=== PATIENT | female | born 1955 | race Caucasian/White ===

== ENCOUNTER 2016-09-11 13:49 | Emergency (ER) | payer MEDICARE, MEDICAID ==
[~2016-09-11] VITALS: Ht 165.1 cm; Wt 87.0 kg
--- NOTE | 2016-09-11 13:54 | PD ---
Physical Exam Date Seen by Provider: Sep 11, 2016 Time Seen by Provider: 13:51 Narrative Pt is a 61 y/o female presenting to the ED for evaluation after a slip and fall at her [facility]. Pt reports pain in upper back and left lower back. No head injury or LOC. No other complaints at this time. Fall was witnessed. Pt is not on any blood thinners. VSS. [facility] Supervised Visit with HONEY: Esperanza Benítez Sep 11, 2016 13:54
--- NOTE | 2016-09-11 14:06 | PD ---
HPI . slip and fall Chief Complaint: Fall Time Seen by Provider: 13:56 Travel History International Travel<30 days: No Contact w/Intl Traveler<30days: No Traveled to known affect area: No History of Present Illness HPI 61-year-old female with history of GERD, seasonal allergies, bipolar disorder and schizophrenia here with complaint of slip and fall at her residence [facility]. Patient is here telling me that she just wants to make her she is okay. She does not actually have any pain. She fell in what she thinks may have been some water and hit her buttocks. She denies any pain in her buttocks. She says there is very minimal pain in her upper and mid back. She denies any bowel or bladder dysfunction. She has no saddle anesthesia. She has no other complaints. She did not hit her head. PFSH Past Medical History Bipolar Disorder: Yes GERD: Yes Schizophrenia: Yes ?: Not LMP: JULY 2016 Social History Alcohol Use: No Tobacco Use: No Substance Use: No Allergies-Medications (Allergen,Severity, Reaction): Coded Allergies: No Known Allergies (Unverified , 09/11/16) Reported Meds & Prescriptions Reported Meds & Active Scripts Active Reported Risperidone 4 Mg Tab 4 Mg PO HS Risperidone 1 Mg Tab 1 Mg PO DAILY Omeprazole 20 Mg Tab 20 Mg PO DAILY Multiple Vitamin 1 Tab 1 Tab PO DAILY Loratadine 10 Mg Tab 10 Mg PO DAILY Fluticasone Nasal [place] 50 Mcg/Act Naspr 100 Mcg EACH NARE DAILY 50 mcg/spray Review of Systems General / Constitutional: No: Fever Eyes: No: Visual changes HENT: No: Headaches Cardiovascular: No: Chest Pain or Discomfort Respiratory: No: Shortness of Breath Gastrointestinal: No: Abdominal Pain Genitourinary: No: Dysuria Musculoskeletal: Positive: Pain (back) Skin: No Rash Neurologic: No: Weakness Psychiatric: No: Depression Endocrine: No: Polydipsia Hematologic/Lymphatic: No: Easy Bruising Physical Exam Narrative GENERAL: AAO x 3, no acute distress, Well-nourished, well-developed patient. Very comfortable SKIN: Warm and dry. No visible rashes or bruising. No bruising on back or buttocks HEAD: Normocephalic and atraumatic. EYES: No scleral icterus. No injection or drainage. EOM intact, PERRLA ENT: No nasal drainage noted. Mucous membranes pink. Airway patent. NECK: Supple, trachea midline. No JVD. CARDIOVASCULAR: Regular rate and rhythm without murmurs, gallops, or rubs. RESPIRATORY: Breath sounds equal bilaterally. No accessory muscle use. No rhonchi or rales. GASTROINTESTINAL: Abdomen soft, non-tender, nondistended. EXTREMITIES: No cyanosis or edema. BACK: Nontender without obvious deformity. No CVA tenderness. No spinal or paraspinal tenderness. Range of motion is normal in all extremities. Patient is fully ambulatory. Heel walk test is negative NEURO: CN 2-12 intact. Sensation is normal. Motor function is normal PSYCH: AAO x 3, normal affect. Data Data Last Documented VS Vital Signs Date Time Temp Pulse Resp B/P Pulse Ox O2 Delivery O2 Flow Rate FiO2 09/11/16 14:56 98.2 85 15 145/74 98 MDM Medical Decision Making Medical Screen Exam Complete: Yes Emergency Medical Condition: Yes Medical Record Reviewed: Yes Differential Diagnosis Slip and fall, back pain, less likely fracture Narrative Course 61-year-old female with history of GERD, seasonal allergies, bipolar disorder and schizophrenia here with complaint of slip and fall at her residence [facility]. Patient is here telling me that she just wants to make her she is okay. She does not actually have any pain. She fell in what she thinks may have been some water and hit her buttocks. She denies any pain in her buttocks. She says there is very minimal pain in her upper and mid back. She denies any bowel or bladder dysfunction. She has no saddle anesthesia. She has no other complaints. She did not hit her head. Patient seen and examined. She does not have any abnormal findings on physical exam. Her entire exam is unremarkable. I advised her that I do not recommend any imaging nor medications at this time. I advised her that she may experience some pain tomorrow and she could use Tylenol or Motrin as needed. I advised her if her pain worsens, return to the emergency department. Patient verbalized understanding of instructions, questions were answered, and thanked me for their care. I advised them if their condition worsens, please return to the nearest emergency room for further care. Diagnosis Primary Impression: Fall from slipping Qualified Code: W01.0XXA - Fall from slipping, initial encounter Patient Instructions: General Instructions Additional Instructions: Please return to emergency department if your symptoms return or worsen. Follow up with your primary care provider. If you develop any severe pain, go to the nearest emergency department. Try Tylenol and Motrin as needed for [id number] pain. Med/Other Pt SpecificInfo: No Change to Meds Disposition: 01 DISCHARGE HOME Condition: Stable Afia Devlin Sep 11, 2016 14:06
[2016-09-11] MEDS ORDERED: OMEP20TA PO (14:11)
[2016-09-11] MEDS ORDERED: LORA10TA PO (14:11)
[2016-09-11] MEDS ORDERED: RISP1TAB2 PO (14:11)
[2016-09-11] MEDS ORDERED: FLUT50SP EACH NARE (14:11)
[2016-09-11] MEDS ORDERED: RISP4TAB2 PO (14:11)
[2016-09-11] MEDS ORDERED: MULTTAB67 PO (14:11)
[2016-09-11 14:56] VITALS: BP 145/74; PULSE 85; RESP 15; TEMP 98.2; O2SAT 98
== END 2016-09-11 14:29 | disposition home or self-care (01) ==
LOC: NEPK 13:49
DX: M54.9 Dorsalgia, unspecified (principal); W01.0XXA Fall on same level from slipping, tripping and stumbling without subsequent striking against object, initial encounter; Y92.199 Unspecified place in other specified residential institution as the place of occurrence of the external cause
CPT/HCPCS: 99283